=== PATIENT | female | born 1985 | race Native Hawaiian/Other Pacific Islander ===

== ENCOUNTER 2016-11-02 03:54 | Inpatient (IN) | payer OTHER ==
[~2016-11-02] VITALS: Ht 160 cm; Wt 63.5 kg
[2016-11-02] VITALS (30 sets, daily range): BP systolic 73–137; BP diastolic 36–89; PULSE 61–113; RESP 16–20; TEMP 97.3–98.3; O2SAT 98
[~2016-11-02 03:54] MED LIST: CIPR500T4 PO; RANI150 PO; ZOFR4TAB3 SL
--- NOTE | 2016-11-02 04:00 | PD ---
HPI Chief Complaint Contractions/bloody discharge Date Seen: Nov 02, 2016 Travel History International Travel<30 Days: No Contact w/Intl Traveler<30Days: No Known Affected Area: No History of Present Illness HPI at 39w 3d, presents with c/o contractions and bloody discharge. Reports symptoms beginning at 1230am. Denies LOF. Reports good FM. Denies problems this . care with Dr. Lamb. Para: 1 : 2 Last Menstrual Period: Nov 02, 2016 History Past Medical History Medical History: Denies Significant Hx Obstetric History Obstetric History G1 2013 FT male, 6#, [employer], no complications. Past Surgical History Surgical History: No Previous Surgery Family History Family History: Negative Social History Alcohol Use: No Tobacco Use: No Substance Abuse: No Allergies-Medications (Allergen,Severity, Reaction): Coded Allergies: No Known Allergies (Unverified , 12/17/13) Home Meds Active Scripts Ciprofloxacin Hcl (Cipro)500 Mg Agg798 Mg PO BID #6 TAB Prov:Lefty Mckeon MD 10/30/14 Ranitidine Hcl (Zantac)150 Mg Udm092 Mg PO BID #10 TAB Prov:Lefty Mckeon MD 10/29/14 Ondansetron (Zofran ODT)4 Mg Tab4 Mg SL Q6 PRN (NAUSEA OR VOMITING) #7 TAB FOR NAUSEA/VOMITING Prov:Lefty Mckeon MD 10/29/14 Physical Exam AFVSS BP 115/78 Narrative GENERAL: Well-nourished, well-developed patient. SKIN: Warm and dry. HEAD: Normocephalic and atraumatic. EYES: No scleral icterus. No injection or drainage. ENT: No nasal drainage noted. Mucous membranes pink. Airway patent. NECK: Supple, trachea midline. No JVD. CARDIOVASCULAR: Regular rate and rhythm without murmurs, gallops, or rubs. RESPIRATORY: Breath sounds equal bilaterally. No accessory muscle use. BREASTS: Bilateral exam showed no masses , no retractions, no nipple discharge. ABDOMEN/GI: Abdomen soft, non-tender, bowel sounds present, no rebound, no guarding Gravid to [-] weeks size Fundal Height: [-] GENITOURINARY: External Genitalia: intact and normal in appearance BUS glands: [-] Cervix: [-] Dilatation: [5] Effacement: [80] Station: [-2] Presentation: [-] Membranes: [intact or ruptured] Uterine Contractions: [irritibility, occasional contractions] FHT's: Category: [2] Baseline: [130s] Reactive: [reactive] Variability: [moderate] Decels: [occasional variable to 110s] EXTREMITIES: No cyanosis or edema. BACK: Nontender without obvious deformity. No CVA tenderness. NEUROLOGICAL: Awake and alert. Motor and sensory grossly within normal limits. Five out of 5 muscle strength in all muscle groups. Normal speech. MDM Interpretation(s) at 39w 3d, active labor. Plan Will admit. not available, request to attempt to obtain. Dr. Carrera notified. Diagnosis Diagnosis: Primary Impression: 39 weeks gestation of Additional Impression: Irregular uterine contractions Cece Avalos MD Nov 02, 2016 04:00
[2016-11-02] MEDS: LACTATED RINGER'S 1000 ML INJ 1,000 ML IV SCH ×3 (04:22→06:48)
[2016-11-02] MEDS ORDERED: LACTATED RINGER'S 1000 ML INJ 1,000 ML IV PRN (04:22)
[2016-11-02] MEDS ORDERED: OXYTOCIN 30 UNITS-500ML PREMIX 500 ML IV ONE (04:30)
[2016-11-02] MEDS ORDERED: MINERAL OIL 10 ML VIAL TOPICAL PRN (04:30)
[2016-11-02] MEDS ORDERED: CITRIC ACID-SODIUM CITRATE LIQ 30 ML UDC PO SCH (04:30)
[2016-11-02] MEDS ORDERED: LIDOCAINE HCL 1% 50 ML VIAL I-DERMAL PRN (04:30)
[2016-11-02] MEDS ORDERED: SODIUM CHLORID 0.9% 500 ML INJ 500 ML IV PRN (04:30)
[2016-11-02] MEDS ORDERED: LIDOCAINE HCL 1% 50 ML VIAL INFIL PRN (04:30)
[2016-11-02] MEDS ORDERED: PREN29TA PO (04:31)
[2016-11-02 04:38] LABS: BASOPHIL # 0.1 TH/MM3 (0-0.2); BASOPHIL % 0.6 % (0.0-2.0); EOSINOPHIL % 0.4 % (0.0-4.0); HEMATOCRIT 37.2 % (35.0-46.0); HEMO FLAGS DIFF FINAL; LYMPH % 15.8 % (9.0-44.0); LYMPHOCYTE # 1.8 TH/MM3 (1.0-4.8); MEAN CELL VOLUME 91.7 FL (80.0-100.0); MEAN CORPUSCULAR HEMOGLOBIN 30.7 PG (27.0-34.0); MEAN CORPUSCULAR HGB CONC 33.5 % (32.0-36.0); MONO % 5.3 % (0.0-8.0); NEUT % 77.9 % (16.0-70.0); PLATELET COUNT 177 TH/MM3 (150-450); RED BLOOD COUNT 4.06 MIL/MM3 (4.00-5.30); RED CELL DISTRIBUTION WIDTH 13.1 % (11.6-17.2); WHITE BLOOD COUNT 11.5 TH/MM3 (4.0-11.0)
[2016-11-02] MEDS ORDERED: SODIUM CHLOR 0.9% 1000 ML INJ 1,000 ML IV PRN (04:42)
[2016-11-02 04:43] LABS: BLOOD, URINE TRACE (NEG); GLUCOSE,URINE NEG (NEG); KETONE, URINE NEG (NEG); MUCUS URINE FEW /lpf (OCC); NITRITE,URINE NEG (NEG); PH, URINE 6.5 (5.0-8.5); SQUAMOUS EPITHELIAL CELL URINE 1 /hpf (0-5); URINE COLOR YELLOW (YELLW/STRAW)
[2016-11-02 04:47] LABS: COMMENT (UR) CULT NOT INDICATED; CULTURE IF INDICATED CULT NOT INDICATED
[2016-11-02] MEDS ORDERED: fentaNYL 2MCG-BUPIV 0.125% INJ 100 ML ONE (06:01)
[2016-11-02] MEDS ORDERED: ePHEDrine/NS 25 MG/5 ML SYR ONE (06:02)
[2016-11-02] MEDS ORDERED: DO NOT ADMINISTER ANTICOAGULANTS PRN (06:45)
[2016-11-02] MEDS ORDERED: ePHEDrine/NS 25 MG/5 ML SYR IV PRN (06:45)
[2016-11-02] MEDS ORDERED: NO SYSTEM NARCOTICS PRN (06:45)
[2016-11-02] MEDS: fentaNYL 2MCG-BUPIV 0.125% 100 ML EPIDURAL SCH ×2 (06:48→09:05)
--- NOTE | 2016-11-02 07:56 | PD.OB.DELI ---
Anesthesia: Epidural Episiotomy: None Vaginal Delivery: Normal Presentation: Occiput anterior Nuchal Cord: x1 Delayed cord clamping (45 sec): Yes : Male One Minute : 7 Five Minute : 9 Weight: 6.5 Placenta: Spontaneous delivery Laceration: No lacerations (EBL minimal) Nena Lamb MD Nov 02, 2016 07:55
[2016-11-02] MEDS ORDERED: SODIUM CHLORIDE 0.9% FLUSH 10 ML FLUSH IV FLUSH PRN (08:00)
[2016-11-02] MEDS ORDERED: ONDANSETRON ODT 4 MG TAB PO PRN (08:00)
[2016-11-02] MEDS ORDERED: ALUMINUM/MAGNESIUM/SIMETH 30 ML CUP PO PRN (08:00)
[2016-11-02] MEDS ORDERED: ZOLPIDEM TARTRATE 5 MG TAB PO PRN (08:00)
[2016-11-02] MEDS: SODIUM CHLORIDE 0.9% FLUSH 10 ML FLUSH IV FLUSH SCH (09:00)
[2016-11-02] MEDS ORDERED: DOCUSATE SODIUM 50 MG/SENNA 8.6 MG TAB PO PRN (09:00)
[2016-11-02 12:54] LABS: RAPID PLASMA REAGIN SCREEN NON-REACTIVE (NON-REACTVE)
[2016-11-02] MEDS ORDERED: MEASLES, MUMPS, RUBELLA VACCINE 0.5 ML VIAL SQ ONE (16:00)
[2016-11-02] MEDS ORDERED: DIPHTH/TETANUS/ACEL PERTUSSIS (BOOSTER) 0.5 ML VIAL/PFS IM ONE (16:00)
[2016-11-02] MEDS: IBUPROFEN 600 MG TAB PO PRN (17:54)
[2016-11-02] MEDS: WITCH HAZEL 50%/GLYCERIN 12.5% 40 PAD JAR TOPICAL PRN (18:11)
[2016-11-02] MEDS: BENZOCAINE 20% TOPICAL SPRAY 60 ML CAN TOPICAL PRN (18:11)
[2016-11-02] MEDS: ACETAMINOPHEN 325 MG TAB PO PRN (21:49)
[2016-11-03] MEDS: IBUPROFEN 600 MG TAB PO PRN ×4 (01:37→21:21)
[2016-11-03 08:05] VITALS: BP 107/70; PULSE 63; RESP 18; TEMP 98
--- NOTE | 2016-11-03 08:30 | HHI.OB ---
Subjective Post Day: 1 Remarks no complaints Objective Vitals/I&O Vital Signs Date Time Temp Pulse Resp B/P Pulse Ox O2 Delivery O2 Flow Rate FiO2 11/02/16 19:11 98.3 73 16 112/68 98 11/02/16 19:01 18 11/02/16 17:55 97.3 61 18 136/70 11/02/16 10:27 98.3 76 18 114/60 11/02/16 09:33 18 11/02/16 09:30 86 111/55 11/02/16 09:16 76 106/62 11/02/16 09:00 113 18 137/89 11/02/16 08:45 89 100/77 11/02/16 08:33 18 11/02/16 08:31 85 109/66 Objective Remarks GENERAL: Well-nourished, well-developed patient. CARDIOVASCULAR: Regular rate and rhythm without murmurs, gallops, or rubs. RESPIRATORY: Breath sounds equal bilaterally. No accessory muscle use. ABDOMEN/GI: Abdomen soft, non-tender. Fundus: Firm, non-tender at umbilicus. GENITOURINARY: Light to moderate bleeding. EXTREMITIES: No cyanosis or edema, non-tender, without signs of DVT. Medications and IVs Current Medications Medications (Trade) Dose Ordered Sig/Alin Route Start Time Stop Time Status Last Admin Lactated Ringer's 1,000 ml @ 125 mls/hr Q8H IV 11/02/16 04:22 11/02/16 06:48 Lactated Ringer's 1,000 ml @ 3,000 mls/hr Q20M PRN IV 11/02/16 04:22 Sodium Chloride 500 ml @ 1,000 mls/hr ONCE PRN IV 11/02/16 04:30 11/09/16 04:29 (NS 1000 ml Inj) 1,000 ml @ 100 mls/hr Q10H PRN IV 11/02/16 04:42 (fentaNYL INJ) 50 mcg Q1H PRN IV PUSH 11/02/16 04:30 (fentaNYL INJ) 100 mcg Q1H PRN IV PUSH 11/02/16 04:30 11/02/16 04:54 Mineral Oil 10 ml 10 ml UNSCH PRN TOPICAL 11/02/16 04:30 (fentaNYL 2MCG-BUPIV 0.125% INJ) 100 ml @ 0 mls/hr TITRATE EPIDURAL 11/02/16 06:45 11/02/16 06:48 (NS Flush) 2 ml BID IV FLUSH 11/02/16 09:00 (NS Flush) 2 ml UNSCH PRN IV FLUSH 11/02/16 08:00 (Tylenol) 650 mg Q4H PRN PO 11/02/16 08:00 11/02/16 21:49 (Motrin) 600 mg Q6H PRN PO 11/02/16 08:00 11/03/16 08:03 (Americaine 20% Top Spr) 1 spray Q4H PRN TOPICAL 11/02/16 08:00 11/02/16 18:11 (Tucks Pads) 1 applic QID PRN TOPICAL 11/02/16 08:00 11/02/16 18:11 (Joelle-Colace) 2 tab Q12H PRN PO 11/02/16 09:00 (Ambien) 5 mg HS PRN PO 11/02/16 08:00 (Mag-Al Plus Susp Liq) 15 ml Q8H PRN PO 11/02/16 08:00 (Zofran Odt) 4 mg Q6H PRN PO 11/02/16 08:00 Assessment/Plan Problem List: (1) state, incidental (2) Vaginal delivery Assessment and Plan PPD #1 doing well for circ today Discharge Planning routine Attending Attestation pt seen by Skylar Griffith MD Nov 03, 2016 08:30
[2016-11-03] MEDS: SODIUM CHLORIDE 0.9% FLUSH 10 ML FLUSH IV FLUSH SCH (09:00)
[2016-11-03] MEDS: LACTATED RINGER'S 1000 ML INJ 1,000 ML IV SCH (09:52)
[2016-11-03] MEDS: ACETAMINOPHEN 325 MG TAB PO PRN (17:59)
[2016-11-03 19:35] VITALS: BP 118/73; PULSE 66; RESP 16; RESP 18; TEMP 97.9
[2016-11-04] MEDS: ACETAMINOPHEN 325 MG TAB PO PRN (00:14)
[2016-11-04 07:55] VITALS: BP 108/68; PULSE 74; RESP 16; TEMP 98.1
--- NOTE | 2016-11-04 08:41 | HHI.OB ---
Subjective Post Day: 2 Remarks nursing well great support desires home Objective Vitals/I&O Vital Signs Date Time Temp Pulse Resp B/P Pulse Ox O2 Delivery O2 Flow Rate FiO2 11/03/16 19:35 66 18 11/03/16 19:35 118/73 11/03/16 19:35 97.9 16 Objective Remarks GENERAL: Well-nourished, well-developed patient. CARDIOVASCULAR: Regular rate and rhythm without murmurs, gallops, or rubs. RESPIRATORY: Breath sounds equal bilaterally. No accessory muscle use. ABDOMEN/GI: Abdomen soft, non-tender. Fundus: Firm, non-tender at umbilicus. GENITOURINARY: Light to moderate bleeding. EXTREMITIES: No cyanosis or edema, non-tender, without signs of DVT. Medications and IVs Current Medications Medications (Trade) Dose Ordered Sig/Alin Route Start Time Stop Time Status Last Admin Lactated Ringer's 1,000 ml @ 125 mls/hr Q8H IV 11/02/16 04:22 11/02/16 06:48 Lactated Ringer's 1,000 ml @ 3,000 mls/hr Q20M PRN IV 11/02/16 04:22 Sodium Chloride 500 ml @ 1,000 mls/hr ONCE PRN IV 11/02/16 04:30 11/09/16 04:29 (NS 1000 ml Inj) 1,000 ml @ 100 mls/hr Q10H PRN IV 11/02/16 04:42 (fentaNYL INJ) 50 mcg Q1H PRN IV PUSH 11/02/16 04:30 (fentaNYL INJ) 100 mcg Q1H PRN IV PUSH 11/02/16 04:30 11/02/16 04:54 Mineral Oil 10 ml 10 ml UNSCH PRN TOPICAL 11/02/16 04:30 (fentaNYL 2MCG-BUPIV 0.125% INJ) 100 ml @ 0 mls/hr TITRATE EPIDURAL 11/02/16 06:45 11/02/16 06:48 (NS Flush) 2 ml BID IV FLUSH 11/02/16 09:00 (NS Flush) 2 ml UNSCH PRN IV FLUSH 11/02/16 08:00 (Tylenol) 650 mg Q4H PRN PO 11/02/16 08:00 11/04/16 00:14 (Motrin) 600 mg Q6H PRN PO 11/02/16 08:00 11/03/16 21:21 (Americaine 20% Top Spr) 1 spray Q4H PRN TOPICAL 11/02/16 08:00 11/02/16 18:11 (Tucks Pads) 1 applic QID PRN TOPICAL 11/02/16 08:00 11/02/16 18:11 (Joelle-Colace) 2 tab Q12H PRN PO 11/02/16 09:00 (Ambien) 5 mg HS PRN PO 11/02/16 08:00 (Mag-Al Plus Susp Liq) 15 ml Q8H PRN PO 11/02/16 08:00 (Zofran Odt) 4 mg Q6H PRN PO 11/02/16 08:00 Assessment/Plan Problem List: (1) state, incidental (2) Vaginal delivery Assessment and Plan PPD #2doing well home RTO 6 weeks Discharge Planning routine Nena Lamb MD Nov 04, 2016 08:40
[2016-11-04] MEDS ORDERED: IBUP-232 PO (08:42)
--- NOTE | 2016-11-04 08:43 | HHI.DCPOC ---
Discharge Care Plan Report Symptoms to Your Doctor -Temperate above 100.5 degrees -Redness, of incision or excessive or foul smelling drainage -Unusual pain or calf pain -Increased vaginal bleeding -Painful or difficulty urinating -Feelings of extreme sadness or anxiety after 2 weeks Goals to Promote Your Health * To prevent worsening of your condition and complications * To maintain your health at the optimal level Directions to Meet Your Goals Take your medications as prescribed Follow your dietary instruction Follow activity as directed Ensure plenty of rest for recovery Drink fluids for hydration Keep your appointments as scheduled Take your immunizations and boosters as scheduled If your symptoms worsen call your PCP, if no PCP go to Urgent Care Center or Emergency Room Smoking is Dangerous to Your Health. Avoid second hand smoke Call the 24-hour crisis hotline for domestic abuse at Nena Lamb MD Nov 04, 2016 08:42
[2016-11-04] MEDS: BENZOCAINE 20% TOPICAL SPRAY 60 ML CAN TOPICAL PRN (10:28)
[2016-11-04] MEDS: IBUPROFEN 600 MG TAB PO PRN (10:28)
[2016-11-04] MEDS: WITCH HAZEL 50%/GLYCERIN 12.5% 40 PAD JAR TOPICAL PRN (10:28)
== END 2016-11-04 13:20 | disposition home or self-care (01) | DRG 775 ==
LOC: HOBED 03:54 → H2EA 04:28 → H1EA 10:19
PROVIDERS: ADMIT Obstetrics & Gynecology; ATTEND Obstetrics & Gynecology
PROC: 10E0XZZ Delivery of Products of Conception, External Approach (ICD-10-PCS; principal; 2016-11-02)
PROC: 00HU33Z Insertion of Infusion Device into Spinal Canal, Percutaneous Approach (ICD-10-PCS; 2016-11-02)
PROC: 3E0R3CZ (ICD-10-PCS; 2016-11-02)
DX: O69.81X0 Labor and delivery complicated by cord around neck, without compression, not applicable or unspecified (principal); Z37.0 Single live birth; Z3A.39 39 weeks gestation of pregnancy
CPT/HCPCS: 81001; 85025; 86592; 86900; 86901; 90715; 99285; J3010; J7120